=== PATIENT | male | born 1965 | race American Indian/Alaskan Native ===

== ENCOUNTER 2024-03-26 17:19 | Inpatient (IN) | payer MEDICAID ==
[~2024-03-26] VITALS: Ht 182.9 cm; Wt 128.7 kg
[~2024-03-26 17:19] MED LIST: ALBU6.7H14 INH; GUAI600T45 PO; METH10OR11 PO
[2024-03-26 18:10] LABS: BASOPHILS # (AUTO) 0.1 X10'3 (0-0.2); BASOPHILS % (AUTO) 0.6 % (0-1); EOSINOPHILS # (AUTO) 1.2 X10'3 (0-0.9); EOSINOPHILS % (AUTO) 11.7 % (0-6); HEMOGLOBIN 14.9 g/dl (14.0-17.9); LYMPHOCYTES # (AUTO) 1.4 X10'3 (1.1-4.8); LYMPHOCYTES % (AUTO) 13.8 % (21-51); MEAN CORPUSCULAR HEMOGLOBIN 30.5 PG (27.0-31.0); MEAN CORPUSCULAR HGB CONC 33.2 g/dL (33.0-36.5); MEAN CORPUSCULAR VOLUME 91.8 FL (78-98); MEAN PLATELET VOLUME 6.9 FL (7.4-10.4); MONOCYTES # (AUTO) 0.7 X10'3 (0-0.9); MONOCYTES % (AUTO) 6.9 % (2-12); NEUTROPHILS # (AUTO) 6.7 X10'3 (1.8-7.7); PLATELET COUNT 219 X10'3 (140-440); RED BLOOD COUNT 4.91 X10'6 (4.70-6.10); RED CELL DISTRIBUTION WIDTH 14.3 % (11.5-14.5); WHITE BLOOD COUNT 10.1 X10'3 (4.5-11.0)
[2024-03-26 18:22] LABS: ALANINE AMINOTRANSFERASE 33 U/L (12-78); ALBUMIN/GLOBULIN RATIO 1.1 (1.1-1.5); ALKALINE PHOSPHATASE 87 IU/L (46-116); ANION GAP 5 (8-16); ASPARTATE AMINO TRANSFERASE 25 U/L (10-37); BILIRUBIN,TOTAL 0.5 MG/DL (0.1-1.0); BLOOD UREA NITROGEN 23 MG/DL (7-18); BUN/CREATININE RATIO 21.9 (10.0-20.0); CALCIUM 9.5 MG/DL (8.5-10.1); CHLORIDE 103 MMOL/L (99-107); CREATININE 1.05 MG/DL (0.60-1.10); GLUCOSE 74 MG/DL (70-104); POTASSIUM 4.6 MMOL/L (3.5-5.1); SODIUM 138 MMOL/L (135-145); TOTAL CARBON DIOXIDE 30.1 MMOL/L (24-32); TOTAL PROTEIN 7.8 G/DL (6.4-8.2); eCRCL 83 ML/MIN; eGFR 72 ML/MIN
[2024-03-26 18:30] LABS: PRO BRAIN NATRIURETIC PEPTIDE < 30 PG/ML (0-125)
[2024-03-26 19:20] LABS: MAGNESIUM 2.2 MG/DL (1.5-2.4)
[2024-03-26] MEDS: ipratropium/albuterol 3ml nebule NEB ONE (19:27)
[2024-03-26 19:29] VITALS: PULSE 118; RESP 24; O2SAT 82
[2024-03-26 19:37] LABS: ABG BASE EXCESS -1.6 mmol/L (-2.0-3.0); ABG HCO3 24.7 mmol/L (21.0-28.0); ABG OXYGEN SATURATION 78.4 % (94.0-98.0); ABG PCO2 (T) 46.8 mmHg (35.0-48.0); ABG PH (T) 7.339 (7.350-7.450); ABG PO2 (T) 42.9 mmHg (83.0-108.0); ALLEN'S TEST Modified; FCOHb 2.2 % (0.5-1.5); FHHb 21.1 % (0.0-5.0); FLOW 0 L/min; FO2Hb 76.7 % (94.0-98.0); MODE ROOM AIR; PATIENT TEMPERATURE 36.9; TOTAL HEMOGLOBIN 16.1 G/dl (13.5-17.5)
[2024-03-26 19:39] VITALS: PULSE 103; RESP 18; O2SAT 98
[2024-03-26] MEDS: methylPREDNISolone sod succ 125mg/2ml vial IV ONE (19:45)
[2024-03-26] MEDS: CefTRIAXone/D5W-Rocephin 1gm 50 ML IV ONE (19:46)
[2024-03-26 20:17] LABS: BILIRUBIN,URINE NEGATIVE (Neg); CLARITY,URINE CLEAR (Clear); COLOR,URINE YELLOW (Yellow); GLUCOSE, URINE NEGATIVE (Neg); KETONES,URINE NEGATIVE (Neg); LEUKOCYTE ESTERASE ,URINE NEGATIVE (Neg); NITRITES, URINE NEGATIVE (Neg); OCCULT BLOOD,URINE NEGATIVE (Neg); PROTEIN,URINE NEGATIVE (Neg); UROBILINOGEN,URINE 0.2 E.U/dL (0.2-1.0)
[2024-03-26] MEDS: levoFLOXACIN-Levaquin 750MG/D5 150 ML IV ONE (20:17)
[2024-03-26 20:27] LABS: UA COLLECTION TYPE VOIDED
[2024-03-26 20:32] LABS: URINE AMPHETAMINE SCREEN NEGATIVE (Neg); URINE BARBITUATE SCREEN NEGATIVE (Neg); URINE BENZODIAZEPINES SCREEN NEGATIVE (Neg); URINE CANNABINOID SCREEN NEGATIVE (Neg); URINE COCAINE SCREEN NEGATIVE (Neg); URINE METHADONE SCREEN POSITIVE (Neg); URINE OPIATE SCREEN NEGATIVE (Neg); URINE PHENCYCLIDINE SCREEN NEGATIVE (Neg)
[2024-03-26 20:40] LABS: ETHANOL < 10 MG/DL (<10)
[2024-03-26] MEDS ORDERED: magnesium sulf-water 4G/100mL 100 ML IV PRN (21:05)
[2024-03-26] MEDS ORDERED: magnesium hydroxide 30ml (MOM) UD suspension PO PRN (21:05)
[2024-03-26] MEDS ORDERED: magnesium sulf-water 2g/50mL 50 ML IV PRN (21:05)
[2024-03-26] MEDS ORDERED: magnesium Cl slow-release 64mg tablet PO PRN (21:05)
[2024-03-26] MEDS ORDERED: potassium Cl 20 mEq SR tablet PO PRN ×2 (21:05)
[2024-03-26] MEDS ORDERED: ondansetron/PF 4mg/2ml inj IV PRN (21:05)
[2024-03-26] MEDS ORDERED: potassium Cl 40MEQ/1/2NS 520ml 520 ML IV PRN (21:05)
[2024-03-26] MEDS ORDERED: albuterol 2.5 MG/3 ML nebule NEB PRN (21:15)
[2024-03-26 21:46] LABS: HEMOGLOBIN A1C 5.6 % (4.5-6.2)
[2024-03-26 22:42] LABS: CHOL/HDL RATIO 2.2 (0.00-4.99); CHOLESTEROL 172 MG/DL (0-200); HDL CHOLESTEROL 77 MG/DL (35-60); LDL CHOLESTEROL 78 MG/DL (50-100); TRIGLYCERIDES 88 MG/DL (20-135)
[2024-03-26] MEDS: ipratropium/albuterol 3ml nebule NEB PRN (23:43)
[2024-03-26 23:44] VITALS: PULSE 85; RESP 18; O2SAT 97
[2024-03-26] MEDS: acetaminophen 325mg tablet PO PRN (23:51)
[2024-03-26 23:52] VITALS: PULSE 91; RESP 18
[2024-03-27] VITALS (16 sets, daily range): BP systolic 117–135; BP diastolic 72–84; PULSE 73–96; RESP 16–20; TEMP 96.7; O2SAT 92–98
[2024-03-27 07:54] LABS: ALBUMIN 3.7 G/DL (3.4-5.0); ANION GAP 7 (8-16); BLOOD UREA NITROGEN 20 MG/DL (7-18); CALCIUM 9.3 MG/DL (8.5-10.1); CHLORIDE 101 MMOL/L (99-107); CREATININE 1.05 MG/DL (0.60-1.10); GLUCOSE 150 MG/DL (70-104); MAGNESIUM 2.1 MG/DL (1.5-2.4); POTASSIUM 5.1 MMOL/L (3.5-5.1); SODIUM 137 MMOL/L (135-145); TOTAL CARBON DIOXIDE 29.3 MMOL/L (24-32); eCRCL 83 ML/MIN; eGFR 72 ML/MIN
[2024-03-27] MEDS: K and/or MAG REPLACEMENT MC SCH (08:00)
[2024-03-27] MEDS: enoxaparin 40mg/0.4ml syringe SUBCUT SCH (08:00)
[2024-03-27 08:04] LABS: BASOPHILS % (AUTO) 0.2 % (0-1); EOSINOPHILS % (AUTO) 0.1 % (0-6); HEMATOCRIT 46.8 % (42.0-52.0); HEMOGLOBIN 15.2 g/dl (14.0-17.9); LYMPHOCYTES # (AUTO) 0.6 X10'3 (1.1-4.8); LYMPHOCYTES % (AUTO) 8.1 % (21-51); MEAN CORPUSCULAR HGB CONC 32.5 g/dL (33.0-36.5); MEAN CORPUSCULAR VOLUME 92.4 FL (78-98); MEAN PLATELET VOLUME 7.2 FL (7.4-10.4); MONOCYTES # (AUTO) 0.1 X10'3 (0-0.9); MONOCYTES % (AUTO) 0.9 % (2-12); NEUTROPHILS # (AUTO) 6.7 X10'3 (1.8-7.7); NEUTROPHILS % (AUTO) 90.7 % (42-75); PLATELET COUNT 217 X10'3 (140-440); RED BLOOD COUNT 5.07 X10'6 (4.70-6.10); RED CELL DISTRIBUTION WIDTH 14.5 % (11.5-14.5); WHITE BLOOD COUNT 7.4 X10'3 (4.5-11.0)
[2024-03-27] MEDS ORDERED: IBUP-1986 PO (09:11)
[2024-03-27] MEDS: ipratropium/albuterol 3ml nebule NEB SCH (11:00)
[2024-03-27] MEDS: methadone 10mg tablet PO SCH (11:42)
[2024-03-27] MEDS: lisinopril 5mg tablet PO SCH (15:16)
[2024-03-27] MEDS: docusate sod 100mg capsule PO SCH (15:16)
[2024-03-27] MEDS: azithromycin 250mg tablet PO SCH (15:17)
[2024-03-27] MEDS: furosemide 20MG tablet PO SCH (15:17)
[2024-03-27] MEDS: CefTRIAXone/D5W-Rocephin 1gm 50 ML IV SCH (15:17)
[2024-03-27] MEDS: pantoprazole 40mg Tablet.DR PO SCH (15:17)
[2024-03-27] MEDS: methylPREDNISolone sod succ 125mg/2ml vial IV SCH (15:19)
[2024-03-28] VITALS (19 sets, daily range): BP systolic 112–133; BP diastolic 67–84; PULSE 80–107; RESP 15–22; TEMP 97.3–98.6; O2SAT 90–95
[2024-03-28] MEDS: albuterol 2.5 MG/3 ML nebule NEB PRN (03:48)
[2024-03-28 06:27] LABS: ALBUMIN 3.7 G/DL (3.4-5.0); ANION GAP 8 (8-16); BLOOD UREA NITROGEN 28 MG/DL (7-18); BUN/CREATININE RATIO 25.7 (10.0-20.0); CALCIUM 9.5 MG/DL (8.5-10.1); CHLORIDE 100 MMOL/L (99-107); CREATININE 1.09 MG/DL (0.60-1.10); GLUCOSE 139 MG/DL (70-104); MAGNESIUM 2.5 MG/DL (1.5-2.4); SODIUM 134 MMOL/L (135-145); TOTAL CARBON DIOXIDE 26.3 MMOL/L (24-32); eCRCL 80 ML/MIN; eGFR 69 ML/MIN
[2024-03-28 06:42] LABS: BASOPHILS # (AUTO) 0.1 X10'3 (0-0.2); BASOPHILS % (AUTO) 0.5 % (0-1); EOSINOPHILS % (AUTO) 0 % (0-6); HEMATOCRIT 45.6 % (42.0-52.0); HEMOGLOBIN 15.1 g/dl (14.0-17.9); LYMPHOCYTES # (AUTO) 0.9 X10'3 (1.1-4.8); LYMPHOCYTES % (AUTO) 6.6 % (21-51); MEAN CORPUSCULAR HEMOGLOBIN 30.7 PG (27.0-31.0); MEAN CORPUSCULAR HGB CONC 33.2 g/dL (33.0-36.5); MEAN CORPUSCULAR VOLUME 92.4 FL (78-98); MEAN PLATELET VOLUME 7.6 FL (7.4-10.4); MONOCYTES # (AUTO) 0.5 X10'3 (0-0.9); MONOCYTES % (AUTO) 3.4 % (2-12); NEUTROPHILS # (AUTO) 11.8 X10'3 (1.8-7.7); NEUTROPHILS % (AUTO) 89.5 % (42-75); PLATELET COUNT 200 X10'3 (140-440); RED BLOOD COUNT 4.94 X10'6 (4.70-6.10); RED CELL DISTRIBUTION WIDTH 14.7 % (11.5-14.5); WHITE BLOOD COUNT 13.2 X10'3 (4.5-11.0)
[2024-03-28] MEDS: ibuprofen tablet 400 MG TABLET PO PRN (15:35)
[2024-03-28] MEDS: mag hydrox/Alum hydrox/simeth 30ml oral suspension PO PRN (19:11)
[2024-03-29] VITALS (9 sets, daily range): BP systolic 120–149; BP diastolic 81–82; PULSE 76–91; RESP 16–18; TEMP 97.7–98.9; O2SAT 90–93
[2024-03-29] MEDS: ibuprofen tablet 400 MG TABLET PO SCH (05:42)
[2024-03-29 06:11] LABS: BASOPHILS % (AUTO) 0 % (0-1); EOSINOPHILS % (AUTO) 0 % (0-6); HEMATOCRIT 43.8 % (42.0-52.0); LYMPHOCYTES # (AUTO) 0.8 X10'3 (1.1-4.8); LYMPHOCYTES % (AUTO) 5.5 % (21-51); MEAN CORPUSCULAR HEMOGLOBIN 31.4 PG (27.0-31.0); MEAN CORPUSCULAR HGB CONC 34.2 g/dL (33.0-36.5); MEAN CORPUSCULAR VOLUME 91.8 FL (78-98); MEAN PLATELET VOLUME 7.3 FL (7.4-10.4); MONOCYTES # (AUTO) 0.6 X10'3 (0-0.9); MONOCYTES % (AUTO) 3.9 % (2-12); NEUTROPHILS # (AUTO) 12.8 X10'3 (1.8-7.7); NEUTROPHILS % (AUTO) 90.6 % (42-75); PLATELET COUNT 239 X10'3 (140-440); RED BLOOD COUNT 4.77 X10'6 (4.70-6.10); RED CELL DISTRIBUTION WIDTH 14.7 % (11.5-14.5); WHITE BLOOD COUNT 14.1 X10'3 (4.5-11.0)
[2024-03-29 06:15] LABS: ALBUMIN 3.6 G/DL (3.4-5.0); ANION GAP 4 (8-16); BLOOD UREA NITROGEN 34 MG/DL (7-18); BUN/CREATININE RATIO 28.1 (10.0-20.0); CALCIUM 9.1 MG/DL (8.5-10.1); CHLORIDE 100 MMOL/L (99-107); CREATININE 1.21 MG/DL (0.60-1.10); GLUCOSE 125 MG/DL (70-104); MAGNESIUM 2.5 MG/DL (1.5-2.4); SODIUM 134 MMOL/L (135-145); TOTAL CARBON DIOXIDE 29.6 MMOL/L (24-32); eCRCL 72 ML/MIN; eGFR 61 ML/MIN
[2024-03-29] MEDS: normal saline 1000ml 1,000 ML IV SCH (07:45)
[2024-03-29] MEDS ORDERED: IPRA4AER IH (12:02)
[2024-03-29] MEDS ORDERED: CEFD300C3 PO (12:02)
[2024-03-29] MEDS ORDERED: PRED20TA PO (12:02)
[2024-03-29] MEDS ORDERED: LACT1CAP76 PO (12:04)
== END 2024-03-29 18:55 | disposition home or self-care (01) | DRG 140 ==
LOC: ER 17:19 → ED HOLD 21:05 → EDBEDREQ 03-27 09:24 → S STAY 03-27 12:35 → SUR 3N 03-27 18:12
PROVIDERS: ADMIT Internal Medicine Pulmonary Disease; ATTEND Family Medicine
DX: J44.1 Chronic obstructive pulmonary disease with (acute) exacerbation (principal); J96.01 Acute respiratory failure with hypoxia; R65.10 Systemic inflammatory response syndrome (SIRS) of non-infectious origin without acute organ dysfunction; F17.210 Nicotine dependence, cigarettes, uncomplicated; J43.9 Emphysema, unspecified; I10 Essential (primary) hypertension; G89.4 Chronic pain syndrome; Z79.899 Other long term (current) drug therapy
CPT/HCPCS: 36415; 36600; 71045; 71250; 80048; 80053; 80061; 80305; 80320; 81003; 82803; 83036; 83605; 83735; 83880; 84145; 84484; 85018; 85025; 87040; 87081; 93005; 93306; 94640; 94760; 96365; 96367; 97161; 97530; 99291; A4615; G0378; J0696; J1650; J1956; J2919; J7030